=== PATIENT | female | born 1980 | race Caucasian/White ===

== ENCOUNTER 2017-06-09 22:25 | Inpatient (IN) | payer OTHER ==
[2017-06-09] MEDS ORDERED: AMPICILLIN SODIUM 2 GM VIAL ONE (23:03)
[2017-06-09] MEDS ORDERED: ELECTROLYTE-148 SOLN 1,000 ML IV SCH (23:45)
[2017-06-09 23:54] LABS: BASO % 0.1 % (0-2.0); EOS % 0.9 % (0-4.5); HEMATOCRIT 35.1 % (32.4-45.2); HEMOGLOBIN 11.8 GM/dL (10.7-15.3); LYMPH % 15.9 % (8-40); MCH 30.6 pg (25.7-33.7); MCHC 33.6 g/dl (32.0-36.0); MEAN CELL VOLUME 91.2 fl (80-96); MEAN PLT VOLUME 8.2 fl (7.5-11.1); NEUT % 76.1 % (42.8-82.8); PLATELET COUNT 216 K/MM3 (134-434); RBC 3.85 M/mm3 (3.60-5.2); RDW 14.3 % (11.6-15.6)
--- NOTE | 2017-06-09 23:59 | HP ---
Past Medical History - Admission Chief Complaint: Labor pain History of Present Illness: 37 yo @ 40 weeks gestation admitted for labor pain. EDC 06/08/17. History Source: Patient Limitations to Obtaining History: No Limitations - Past Medical History ...: 11 ...Para: 4 ...EDC by Jayla: 06/08/17 - Past Surgical History Past Surgical History: Yes: None Hx Myomectomy: No Hx Transabdominal Cerclage: No - Social History Usual Living Arrangement: Yes: With Significant Other History of Recent Travel: No Family Disease History - Family Disease History Family History: Unremarkable Review of Systems - Review of Systems Constitutional: reports: No Symptoms Eyes: reports: No Symptoms HENT: reports: No Symptoms Neck: reports: No Symptoms Cardiovascular: reports: No Symptoms Respiratory: reports: No Symptoms Gastrointestinal: reports: No Symptoms Genitourinary: reports: No Symptoms Breasts: reports: No Symptoms Reported Musculoskeletal: reports: No Symptoms Integumentary: reports: No Symptoms Neurological: reports: No Symptoms Endocrine: reports: No Symptoms Hematology/Lymphatic: reports: No Symptoms Psychiatric: reports: No Symptoms Pain Intensity: 6 Physical Exam - Maternity Constitutional: Yes: Well Nourished Eyes: Yes: Conjunctiva Clear HENT: Yes: Atraumatic Neck: Yes: Supple Cardiovascular: Yes: Regular Rate and Rhythm Lungs: Clear to auscultation Breast(s): Yes: WNL - Abdominal Exam/OB Number of Fetuses: Single Presentation: Vertex Contractions: Yes Regularity: Irregular Intensity: Moderate - Vaginal Exam/OB Vaginal Bleediing: No Dilatation (cm): 8 Effacement (%): 100 Amniotic Membrane Status: Intact Station: -2 - Physical Exam ...Motor Strength: WNL Psychiatric: Yes: Alert, Oriented Problem List - Problems (1) Pain during labor Code(s): O99.89 - OTH DISEASES AND CONDITIONS COMPL PREG/CHLDBRTH; R52 - PAIN, UNSPECIFIED (2) Grand multiparity in labor and delivery, antepartum Code(s): O09.40 - SUPERVISION OF W GRAND MULTIPARITY, UNSP TRIMESTER Assessment/Plan Grand multip in labor Admit to L&D Anticipate
[2017-06-10 00:13] VITALS: BMI 39.3
[2017-06-10 00:16] LABS: ANION GAP 11 (8-16); BLOOD UREA NITROGEN 8 mg/dL (7-18); CALCIUM 8.5 mg/dL (8.5-10.1); CHLORIDE 106 mmol/L (98-107); CO2 22 mmol/L (21-32); CREATININE 0.6 mg/dL (0.55-1.02); GLUCOSE,RANDOM 79 mg/dL (74-106); SODIUM 139 mmol/L (136-145)
[2017-06-10] MEDS ORDERED: OXYTOCIN 20 UNITS in 0.9% NS 20 UNIT/1,000 ML INFUS.BAG IV ONE (00:22)
[2017-06-10] MEDS ORDERED: BENZOCAINE 28 GM HEMORRHOIDAL OINTMENT TP PRN (00:40)
[2017-06-10] MEDS ORDERED: WITCH HAZEL 50% (TUCKS) 40 PAD/JAR PAD TP PRN (00:40)
[2017-06-10] MEDS ORDERED: BISACODYL 10 MG SUPP.RECT RC PRN (00:40)
[2017-06-10] MEDS ORDERED: BENZOCAINE 20% 57 GM BOTTLE TP PRN (00:40)
[2017-06-10] MEDS ORDERED: METHYLERGONOVINE MALEATE 0.2 MG/1 ML AMP IM PRN (00:40)
--- NOTE | 2017-06-10 00:43 | PN ---
Delivery - Delivery Vaginal Delivery: Spontaneous Episiotomy/Laceration: None EBL (cc): 250 Delivery, Single - Feeding Plan Initial Plan: Elected not to breastfeed exclusively throughout hospitalization Remarks - Remarks Remarks: Normal spontaneous vaginal delivery of a live infant boy over intact perineum. Nose / Oropharynx suctioned @ perineum. Cord clamped and cut. Placenta expelled spontaneously intact. Mother in stable condition.
[2017-06-10] MEDS ORDERED: OXYTOCIN 20 UNITS in 0.9% NS 20 UNIT/1,000 ML INFUS.BAG IV SCH (00:45)
[2017-06-10 00:46] LABS: INR 0.96 (0.82-1.09); PROTHROMBIN TIME (PATIENT) 10.9 SEC (9.98-11.88)
[2017-06-10] MEDS: ACETAMINOPHEN 325 MG TABLET (FP) PO PRN ×3 (00:55→18:11)
[2017-06-10] MEDS: IBUPROFEN 600 MG TABLET (FP) PO PRN ×3 (00:55→18:11)
[2017-06-10] MEDS ORDERED: BUTORPHANOL TARTRATE 1 MG/ML VIAL ONE (01:45)
[2017-06-10] MEDS ORDERED: PROMETHAZINE HCL 25 MG/1 ML VIAL ONE (01:46)
[2017-06-10 03:44] LABS: URINE APPEARANCE CLEAR; URINE BILIRUBIN NEGATIVE (NEGATIVE); URINE BLOOD 1+ (NEGATIVE); URINE COLOR YELLOW; URINE GLUCOSE (UA) NEGATIVE (NEGATIVE); URINE KETONE 1+ (NEGATIVE); URINE LEUK ESTERASE NEGATIVE (NEGATIVE); URINE NITRITE NEGATIVE (NEGATIVE); URINE UROBILINOGEN NEGATIVE mg/dL (0.2-1.0)
[2017-06-10 03:49] LABS: COCAINE, UR NEGATIVE ng/ml (CUTOFF=300); METHADONE, UR NEGATIVE ng/ml (CUTOFF=300); OPIATES, URI NEGATIVE ng/ml (CUTOFF=300); PHENCYCLIDINE,URINE NEGATIVE ng/ml (CUTOFF=25); URINE AMPHETAMINES NEGATIVE ng/ml (CUTOFF=500); URINE BARBITURATES NEGATIVE ng/ml (CUTOFF=200); URINE BENZODIAZEPINES NEGATIVE ng/ml (CUTOFF=200)
[2017-06-10 04:00] LABS: URINE PROTEIN 1+ (NEGATIVE)
[2017-06-10 04:02] LABS: EPI CELLS RARE /HPF (FEW); URINE MUCUS RARE
[2017-06-10] MEDS ORDERED: TUBERCULIN PPD 5 TU/0.1ML SYRINGE (IN PATIENT USE ONLY) ID ONE (05:45)
[2017-06-10] MEDS ORDERED: ALBUTEROL SO4 18 GM HFA INHALER IH PRN (05:58)
[2017-06-10] MEDS: FERROUS SO4 325 MG TABLET (FP) PO SCH ×3 (08:47→18:10)
[2017-06-10] MEDS ORDERED: PRENATAL VITAMINS W/ FOLIC ACID TABLET (FP) PO SCH (10:00)
[2017-06-11] MEDS: ACETAMINOPHEN 325 MG TABLET (FP) PO PRN ×2 (02:19→07:44)
[2017-06-11] MEDS: IBUPROFEN 600 MG TABLET (FP) PO PRN ×2 (02:20→07:43)
[2017-06-11] MEDS: FERROUS SO4 325 MG TABLET (FP) PO SCH (07:46)
--- NOTE | 2017-06-11 08:17 | PN ---
Post Progress Note - Subjective Subjective: pt is requesting for discharge today. her baby is transferred to [facility] Post Day: 1 Type of Delivery: Vital Signs: Vital Signs Temperature 98.1 F 06/10/17 22:00 Pulse Rate 83 06/10/17 22:00 Respiratory Rate 20 06/10/17 22:00 Blood Pressure 91/54 06/10/17 22:00 O2 Sat by Pulse Oximetry (%) 98 06/10/17 02:15 Breast Exam: Yes: Soft. No: Engorged Uterus: Yes: Fundus Firm, Fundus below umbilicus, Non-tender Lochia: Yes: Rubra Lochia, amount: Moderate Extremities: Yes: Calves non-tender Perineum: Yes: Intact Activity: Ambulating - Labs Labs: CBC WBC 13.0 K/mm3 (4.0-10.0) H 06/09/17 23:05 RBC 3.85 M/mm3 (3.60-5.2) 06/09/17 23:05 Hgb 11.8 GM/dL (10.7-15.3) 06/09/17 23:05 Hct 35.1 % (32.4-45.2) 06/09/17 23:05 MCV 91.2 fl (80-96) 06/09/17 23:05 MCH 30.6 pg (25.7-33.7) 06/09/17 23:05 MCHC 33.6 g/dl (32.0-36.0) 06/09/17 23:05 RDW 14.3 % (11.6-15.6) 06/09/17 23:05 Plt Count 216 K/MM3 (134-434) 06/09/17 23:05 MPV 8.2 fl (7.5-11.1) 06/09/17 23:05 Neutrophils % 76.1 % (42.8-82.8) 06/09/17 23:05 Lymphocytes % 15.9 % (8-40) 06/09/17 23:05 Monocytes % 7.0 % (3.8-10.2) 06/09/17 23:05 Eosinophils % 0.9 % (0-4.5) 06/09/17 23:05 Basophils % 0.1 % (0-2.0) 06/09/17 23:05 Assessment/Plan stable. pp cbc pending plan discharge today.
[2017-06-11 08:25] LABS: BASO % 0.2 % (0-2.0); EOS % 1.5 % (0-4.5); HEMATOCRIT 35.2 % (32.4-45.2); HEMOGLOBIN 11.7 GM/dL (10.7-15.3); LYMPH % 21.2 % (8-40); MCH 30.5 pg (25.7-33.7); MCHC 33.2 g/dl (32.0-36.0); MEAN CELL VOLUME 91.7 fl (80-96); MONO % 5.6 % (3.8-10.2); NEUT % 71.5 % (42.8-82.8); PLATELET COUNT 223 K/MM3 (134-434); RBC 3.83 M/mm3 (3.60-5.2); RDW 14.6 % (11.6-15.6); WHITE BLOOD COUNT 13.7 K/mm3 (4.0-10.0)
[2017-06-11 08:57] VITALS: BP 122/68; PULSE 64; TEMP 97.5
[2017-06-11] MEDS ORDERED: SENNOSIDES/DOCUSATE COMBO (SENNA PLUS) TABLET (UD) PO PRN (22:00)
== END 2017-06-11 09:00 | disposition home or self-care (01) | DRG 560 ==
LOC: JDEL 22:25 → JLDR 22:26 → J3W 06-10 03:17
PROVIDERS: ADMIT Obstetrics & Gynecology; ATTEND Obstetrics & Gynecology
PROC: 10E0XZZ Delivery of Products of Conception, External Approach (ICD-10-PCS; principal; 2017-06-10)
DX: O80 Encounter for full-term uncomplicated delivery (principal); Z3A.40 40 weeks gestation of pregnancy; Z37.0 Single live birth
CPT/HCPCS: 36415; 59409; 80048; 80307; 81003; 81015; 85025; 85610; 85730; 86593; 86850; 86900; 86901; 87389

== ENCOUNTER 2020-01-05 12:18 | Emergency (ER) | payer OTHER ==
[2020-01-05 12:26] VITALS: BP 146/87; PULSE 103; TEMP 98.2; BMI 38.0
[2020-01-05] MEDS ORDERED: diazePAM 5 MG TABLET PO ONE (12:39)
[2020-01-05] MEDS ORDERED: diazePAM 5 MG TABLET ONE (12:41)
--- NOTE | 2020-01-05 12:44 | PDOC ---
History of Present Illness - General Chief Complaint: Choking Sensation Stated Complaint: CHOKING IN SLEEP Time Seen by Provider: 01/05/20 12:28 - History of Present Illness Initial Comments: 01/05/20 12:44 39-year-old female presents for evaluation of multiple complaints. She states she has a intermittent choking sensation at night she is been quarantining herself and watching the news worried about catching coronavirus. She would like her blood checked for diabetes because she has gained weight in quarantine. Past History - Medical History Allergies/Adverse Reactions: Allergies Allergy/AdvReac Type Severity Reaction Status Date / Time No Known Allergies Allergy Verified 01/05/20 12:21 Home Medications: Ambulatory Orders Vit,Calc76/Iron/Folic [Pnv 29-1 Tablet] 1 tab PO DAILY 06/10/17 Acetaminophen [Tylenol .Regular Strength -] 650 mg PO Q3H PRN tablet 06/11/17 Ibuprofen [Motrin -] 200 mg PO Q4H PRN tablet 06/11/17 Vitamins (Sjr) - 1 tab PO DAILY tablet 06/11/17 Asthma: Yes Cancer: No Cardiac Disorders: No COPD: No Diabetes: No HTN: No Seizures: No Thyroid Disease: No - Reproductive History Is Patient Now?: No - Immunization History Immunization Up to Date: Yes - Psycho-Social/Smoking History Smoking History: Never smoked - Substance Abuse Hx (Audit-C & DAST Scrn) How often the patient has a drink containing alcohol: Never Score: In Men: 4 or > Positive; In Women: 3 or > Positive: 0 Screen Result (Pos requires Nsg. Audit-10AR): Negative In the last yr the pt used illegal drug/Rx for NonMed reason: No Score: Yes response is considered Positive: 0 Screen Result (Positive result requires Nsg. DAST-10): Negative Review of Systems - Review of Systems Constitutional: No: Fever Respiratory: No: Cough *Physical Exam - Vital Signs Last Vital Signs Temp Pulse Resp BP Pulse Ox 98.2 F 103 H 20 146/87 100 01/05/20 12:21 01/05/20 12:21 01/05/20 12:21 01/05/20 12:21 01/05/20 12:21 - Physical Exam General Appearance: Yes: Nourished, Appropriately Dressed. No: Apparent Distress HEENT: positive: Symmetrical Neck: positive: Supple Respiratory/Chest: positive: Normal Breath Sounds. 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 Slight elevation in glucose but the test was nonfasting. Thyroid normal follow-up with primary care physician I have reviewed the pathophysiology with the patient. They are in agreement with the treatment plan all questions were answered to their satisfaction. Understanding for follow-up without fail was also conveyed to the patient. Again they are in agreement. Discharge - Discharge Information Problems reviewed: Yes Clinical Impression/Diagnosis: Anxiety Condition: Stable Disposition: HOME - Admission No - Follow up/Referral Referrals: Juan Luis Boone MD [Staff Physician] - - Patient Discharge Instructions Additional Instructions: Return to the emergency room for worsening symptoms and without fail follow-up with internal medicine in 1 to 2 days for further evaluation and treatment options. - Post Discharge Activity
[2020-01-05 13:11] LABS: PH,URINE 7.5 (5.0-8.0); URINE APPEARANCE CLEAR; URINE BILIRUBIN NEGATIVE (NEGATIVE); URINE COLOR YELLOW; URINE GLUCOSE (UA) NEGATIVE (NEGATIVE); URINE KETONE TRACE (NEGATIVE); URINE LEUK ESTERASE NEGATIVE (NEGATIVE); URINE NITRITE NEGATIVE (NEGATIVE); URINE PROTEIN NEGATIVE (NEGATIVE)
[2020-01-05 13:14] LABS: HCG,QUALITATIVE URINE Negative
[2020-01-05 13:15] LABS: BASO % 0.2 % (0-2.0); EOS % 0.6 % (0-4.5); HEMATOCRIT 43.4 % (32.4-45.2); HEMOGLOBIN 14.5 GM/dL (10.7-15.3); LYMPH % 18.7 % (8-40); MCH 30.6 pg (25.7-33.7); MCHC 33.5 g/dl (32.0-36.0); MEAN CELL VOLUME 91.4 fl (80-96); MEAN PLT VOLUME 9.1 fl (7.5-11.1); MONO % 4.4 % (3.8-10.2); NEUT % 76.1 % (42.8-82.8); PLATELET COUNT 271 K/MM3 (134-434); RBC 4.75 M/mm3 (3.60-5.2); RDW 13.8 % (11.6-15.6); WHITE BLOOD COUNT 10.2 K/mm3 (4.0-10.0)
[2020-01-05 13:38] LABS: ALBUMIN 3.5 g/dl (3.4-5.0); BILIRUBIN,TOTAL 0.3 mg/dL (0.2-1); BLOOD UREA NITROGEN 7.9 mg/dL (7-18); CALCIUM 8.7 mg/dL (8.5-10.1); CREATININE 0.9 mg/dL (0.55-1.3); POTASSIUM 4.1 mmol/L (3.5-5.1); TOT PROT 8.1 g/dl (6.4-8.2)
== END 2020-01-05 14:04 | disposition home or self-care (01) ==
LOC: JERFT 12:18
DX: F41.9 Anxiety disorder, unspecified (principal)
CPT/HCPCS: 36415; 80053; 81003; 84443; 84703; 85025; 99284-25

== ENCOUNTER 2020-11-06 13:32 | Emergency (ER) | payer OTHER ==
[2020-11-06 13:59] VITALS: BP 113/78; PULSE 80; TEMP 97.9; BMI 39.3
[2020-11-06] MEDS ORDERED: KETOROLAC TROMETHAMINE 30 MG/1 ML VIAL IM ONE (14:30)
[2020-11-06] MEDS ORDERED: KETOROLAC TROMETHAMINE 30 MG/1 ML VIAL ONE (14:40)
== END 2020-11-06 15:20 | disposition home or self-care (01) ==
LOC: JERFT 13:32
PROC: 3E0233Z Introduction of Anti-inflammatory into Muscle, Percutaneous Approach (ICD-10-PCS; principal; 2020-11-06)
DX: M54.6 Pain in thoracic spine (principal)
CPT/HCPCS: 71046-TC-FY; 99284-25

== ENCOUNTER 2021-01-16 14:02 | Emergency (ER) | payer OTHER ==
[2021-01-16 14:23] VITALS: BP 119/84; PULSE 80; TEMP 98.2; BMI 38.4
[2021-01-16] MEDS ORDERED: KETOROLAC TROMETHAMINE 60 MG/2 ML VIAL IM ONE (15:13)
== END 2021-01-16 15:55 | disposition home or self-care (01) ==
LOC: JER 14:02
PROC: 3E0233Z Introduction of Anti-inflammatory into Muscle, Percutaneous Approach (ICD-10-PCS; principal; 2021-01-16)
DX: J02.9 Acute pharyngitis, unspecified (principal); H66.002 Acute suppurative otitis media without spontaneous rupture of ear drum, left ear; Z11.52 Encounter for screening for COVID-19
CPT/HCPCS: 87880; 99284-25; C9803; U0003; U0005